=== PATIENT | female | born 1995 | race Hispanic/Latino ===

== ENCOUNTER 2022-12-15 10:36 | Emergency (ER) | payer OTHER, SELFPAY ==
[2022-12-15] MEDS ORDERED: traMADol HCl 50 MG TAB ONE (11:35)
== END 2022-12-15 11:50 | disposition home or self-care (01) ==
LOC: CSHERS 10:36
DX: K04.7 Periapical abscess without sinus (principal); K03.81 Cracked tooth; F17.210 Nicotine dependence, cigarettes, uncomplicated
CPT/HCPCS: 99282

== ENCOUNTER 2023-05-01 00:12 | Emergency (ER) | payer OTHER ==
[2023-05-01] MEDS ORDERED: Ketorolac Tromethamine 30 MG/ML VIAL ONE ×2 (00:35→00:37)
== END 2023-05-01 00:45 | disposition home or self-care (01) ==
LOC: CSHERS 00:12
DX: K03.81 Cracked tooth (principal); K02.9 Dental caries, unspecified; F17.210 Nicotine dependence, cigarettes, uncomplicated
CPT/HCPCS: 96372; 99282; J1885

== ENCOUNTER 2023-06-17 08:26 | Emergency (ER) | payer SELFPAY, MEDICAID, OTHER ==
[2023-06-17] MEDS ORDERED: Acetaminophen 500 MG TAB ONE (10:41)
== END 2023-06-17 11:27 | disposition home or self-care (01) ==
LOC: CSHERS 08:26
DX: S99.912A Unspecified injury of left ankle, initial encounter (principal); F17.210 Nicotine dependence, cigarettes, uncomplicated; W01.0XXA Fall on same level from slipping, tripping and stumbling without subsequent striking against object, initial encounter